=== PATIENT | male | born 1960 ===

== ENCOUNTER 2019-04-26 06:31 | Day surgery (SDC) | payer MEDICARE, MEDICAID ==
--- NOTE | 2019-04-21 11:41 | Opthalmology H&P ---
Ophthalmology H&P H&P Chief Complaint: decreased vision in right eye HPI Vision Affects Ability to: read, focus/use eyes together Past Ocular History: retinal problems - Vitreous hemorrhage OD HPI Narrative Blurry vision Exam Visual Acuity: OD 20/125 OS 20/60 Tension: OD 14 OS 16 Eye Exam: normal OU: external exam, palpebral fissure-width, marginal reflex distance, levator function, corneas, anterior chambers, lens - NS/CC Cataracts OU, fundus exam - PDR/ME OU; findings: lens - NS/CC Cataracts OU, fundus exam - PDR/ME OU Assessment/Plan Treatment Plan: cataract extraction w/ lens implant Goals of Treatment: improvement of vision, enhance quality of life Attestation Attestation The risks and benefits of the surgery as well as alternative procedures were explained to the patient in detail. Filippo Bernal MD Apr 21, 2019 11:41
--- NOTE | 2019-04-21 11:45 | Pre-Procedure Note/Attestation ---
Pre-Procedure Note/Attestation Complete Prior to Procedure Planned Procedure: right Procedure Narrative: Cataract extraction with intraocular lens implant right eye Indications for Procedure Pre-Operative Diagnosis: Nuclear sclerotic/Cortical cataract right eye Attestation I attest that I discussed the nature of the procedure; its benefits; risks and complications; and alternatives (and the risks and benefits of such alternatives ), prior to the procedure, with the patient (or the patient's legal inbound call center representative). I attest that, if there was a reasonable possibility of needing a blood transfusion, the patient (or the patient's legal inbound call center representative) was given the [facility] standardized written summary, pursuant to the Virgilio Elizabeth Blood Safety Act ([place] Health and Safety Code # 1645, as amended). I attest that I re-evaluated the patient just prior to the surgery and that there has been no change in the patient's H&P, except as documented below: Filippo Bernal MD Apr 21, 2019 11:45
[~2019-04-26] VITALS: Ht 167.6 cm; Wt 65.8 kg
[2019-04-26] VITALS (9 sets, daily range): BP systolic 157–171; BP diastolic 67–79
[~2019-04-26 06:31] MED LIST: ATORVASTATIN CA20 MG ORAL; ATORVASTATIN CA40 MG ORAL; CARVEDILOL3.125 MG ORAL; CARVEDILOL6.25 MG ORAL; DILTIAZEM ER240 M2 ORAL; FERROUS SULFAT325 MG ORAL; FOLIC ACID1 MG ORAL; FUROSEMIDE20 M1 ORAL; FUROSEMIDE40 MG ORAL; HYDRALAZINE HCL50 MG ORAL; IMDUR60 MG ORAL; LABETALOL HCL200 MG ORAL; NIFEDIPINE ER60 M3 ORAL; RENA-VITE RX T1 EAC1 PO; VITAMIN D5000 UNI1 PO
[2019-04-26] MEDS ORDERED: Tetracaine 0.5% Opth 4ml Soln RIGHT EYE ONE (07:00)
[2019-04-26] MEDS ORDERED: Akten 3.5% 1ml Btl RIGHT EYE ONE (07:00)
[2019-04-26] MEDS ORDERED: Proparacaine 0.5% Opth Soln 15ml RIGHT EYE ONE (07:00)
[2019-04-26] MEDS: Diclofenac Sod 0.1% Op Soln RIGHT EYE SCH ×3 (08:39→09:04)
[2019-04-26] MEDS: Tobramycin Op Soln 0.3% 5ml RIGHT EYE SCH ×3 (08:39→09:01)
[2019-04-26] MEDS: Phenylephrine 10% Opth Soln 5ml RIGHT EYE SCH ×3 (08:41→09:05)
[2019-04-26] MEDS: Tropicamide 1% Opth 15ml Soln RIGHT EYE SCH ×3 (08:41→09:05)
[2019-04-26] MEDS: Cyclopentolate 1% Opth Sol 2ml RIGHT EYE SCH ×3 (08:43→09:05)
[2019-04-26] MEDS ORDERED: PRAVASTATIN SOD80 M1 ORAL (09:31)
[2019-04-26] MEDS ORDERED: GLIPIZIDE5 MG ORAL (09:32)
[2019-04-26] MEDS ORDERED: DOCUSATE SODIU100 MG ORAL (09:32)
[2019-04-26] MEDS ORDERED: CARVEDILOL25 MG ORAL (09:33)
[2019-04-26] MEDS ORDERED: ACYCLOVIR400 MG ORAL (09:34)
[2019-04-26] MEDS ORDERED: BACTRIM 400-801 EACH ORAL (09:35)
[2019-04-26] MEDS ORDERED: NIFEDIPINE ER90 M2 ORAL (09:36)
[2019-04-26] MEDS ORDERED: PREDNISONE10 MG ORAL (09:36)
[2019-04-26] MEDS ORDERED: CELLCEPT250 MG ORAL (09:38)
[2019-04-26] MEDS ORDERED: PROGRAF0.5 MG PO (09:39)
[2019-04-26] MEDS ORDERED: PROGRAF1 MG ORAL (09:39)
[2019-04-26] MEDS ORDERED: EPINEPHrine 1mg/1ml Amp ONE (11:21)
[2019-04-26] MEDS ORDERED: Povidone-Iodine 5% opth solution ONE (11:22)
[2019-04-26] MEDS ORDERED: BSS 500ml btl ONE (11:22)
[2019-04-26] MEDS ORDERED: Sodium Hyaluronate 14 mg/ml 0.85ml ONE (11:22)
[2019-04-26] MEDS ORDERED: BSS 15ml BTL ONE (11:22)
[2019-04-26] MEDS ORDERED: fentaNYL 100 mcg/2 mL IV ONE (11:25)
[2019-04-26] MEDS ORDERED: Midazolam 2mg/2ml Inj ONE (11:25)
[2019-04-26] MEDS ORDERED: Pilocarpine 1% Opth 15ml Soln ONE (11:30)
[2019-04-26] MEDS ORDERED: NS Irrig 1000ml ONE (11:30)
[2019-04-26] MEDS ORDERED: LR 1000ml ONE (11:30)
[2019-04-26] MEDS ORDERED: Sterile Water Irrig 1000ml IRRIG ONE (11:30)
[2019-04-26] MEDS ORDERED: Dexamethasone 4mg/ml vial ONE (11:30)
[2019-04-26] MEDS ORDERED: fentaNYL 100 mcg/2 mL IV PRN (11:30)
[2019-04-26] MEDS ORDERED: Pred Forte 1% Opth Susp 1ml ONE (11:30)
--- NOTE | 2019-04-26 11:30 | Anethesia Preoperative Eval ---
Anesthesia Pre-op PMH/ROS General Date of Evaluation: Apr 26, 2019 Time of Evaluation: 11:29 Anesthesiologist: aries ASA Score: ASA 3 Mallampati Score Class I : Soft palate, uvula, fauces, pillars visible Class II: Soft palate, uvula, fauces visible Class III: Soft palate, base of uvula visible Class IV: Only hard plate visible Mallampati Classification: Class II Surgeon: sharan Diagnosis: cataract Surgical Procedure: cataract extraction Anesthesia History: none Family History: no anesthesia problems Allergies: Coded Allergies: NO KNOWN ALLERGIES (Unverified Allergy, 05/27/13) Medications: see eMAR Patient NPO?: Yes NPO Date: Apr 26, 2019 NPO Time: 00:01 Past Medical History Cardiovascular: Reports: HTN, CAD, other - s/p cabg Pulmonary: Denies: asthma, COPD, CARLOS, other Gastrointestinal/Genitourinary: Reports: GERD, ESRD - fistual left arm, other - s/p kidney transplant Neurologic/Psychiatric: Denies: dementia, CVA, depression/anxiety, TIA, other Endocrine: Reports: DM - fsb = 127; Denies: hypothyroidism, steroids, other HEENT: Reports: cataract (L), cataract (R); Denies: glaucoma, COMANCHE (L), COMANCHE (R), other Hematology/Immune: Denies: anemia, DVT, bleeding disorder, other Musculoskeletal/Integumentary: Reports: other - right leg pain; Denies: OA, RA, DJD, DDD, edema PSxH Narrative: CABG; kidney transplant Anesthesia Pre-op Phys. Exam Physician Exam Last Vital Signs Date Time Temp Pulse Resp B/P (MAP) Pulse Ox O2 Delivery O2 Flow Rate FiO2 04/26/19 09:23 Room Air 04/26/19 08:53 97.0 65 18 165/70 95 Constitutional: NAD Neurologic: CN 2-12 intact Cardiovascular: RRR Respiratory: CTA Gastrointestinal: S/NT/ND Airway Exam Mallampati Classification 3 Mallampati Score: Class III MO: full ROM: full Dentures: no upper, no lower Anesthesia Pre-op A/P Labs Accucheck 127 Studies Pre-op Studies: EKG - SR Risk Assessment & Plan Assessment: denies cp /sob/changes in health Plan: mac Pre-Antibiotics Drug: none Karen Mccarty CRNA Apr 26, 2019 11:30
--- NOTE | 2019-04-26 12:13 | Immediate Post-Op Evaluation ---
Immediate Post-Op Evalulation Immediate Post-Op Evalulation Procedure: right eye cataract surgery Date of Evaluation: Apr 26, 2019 Time of Evaluation: 12:12 IV Fluids: 300 Blood Pressure Systolic: 145 Blood Pressure Diastolic: 70 Pulse Rate: 62 Respiratory Rate: 14 O2 Sat by Pulse Oximetry: 99 Temperature (Fahrenheit): 97.0 Nausea: No Vomiting: No Complications none Patient Status: awake, reacts, patent Hydration Status: adequate Drug: none Karen Mccarty CRNA Apr 26, 2019 12:13
--- NOTE | 2019-04-26 15:38 | 48 Hour Post Anesthesia Eval ---
Post Anesthesia Evaluation Procedure: right eye cataract surgery Date of Evaluation: Apr 26, 2019 Time of Evaluation: 15:38 Blood Pressure Systolic: 159 0: 70 Pulse Rate: 57 Respiratory Rate: 15 O2 Sat by Pulse Oximetry: 98 Airway: patent Nausea: No Vomiting: No Hydration Status: adequate Cardiopulmonary Status: stable Mental Status/LOC: patient returned to baseline Post-Anesthesia Complications: none Follow-up care needed: N/A Karen Mccarty CRNA Apr 26, 2019 15:38
--- NOTE | 2019-04-28 13:13 | Brief Operative Note ---
Immediate Post Operative Note Operative Note Chief Complaint: Blurry vision Pre-op Diagnosis: Nuclear sclerotic/Cortical cataract right eye Procedure: Cataract extraction with IOL right eye Findings: consistent w/pre-op dx studies Surgeon: Filippo Bernal MD Anesthesiologist: Karen Mccarty CRNA Anesthesia: MAC Specimen: none Complications: none Condition: stable Fluids: LR Estimated Blood Loss: none Drains: none Implant(s) used?: Yes Filippo Bernal MD Apr 28, 2019 13:13
--- NOTE | 2019-04-28 13:14 | Operative Note - PDOC ---
Operative Note Operative Note Date of Operation/Procedure: Apr 26, 2019 Chief Complaint: Blurry vision Pre-op Diagnosis: Nuclear sclerotic/Cortical cataract right eye Procedure: Cataract extraction with IOL right eye Operative Findings: consistent w/pre-op dx studies Surgeon: Filippo Bernal MD Anesthesiologist: Karen Mccarty CRNA Anesthesia: MAC Specimen: none Complications: none Condition: stable Fluids: LR Estimated Blood Loss: none Drains: none Implant(s) used?: Yes - IOL Description of Procedure This patient has been complaining visually significant cataract in the right eye with the best corrected visual acuity of 20/80 under moderate glare conditions worse. The patient complains of difficulties with glare in performing activities of daily living and wants to manage personal affairs with comfort and accuracy and see well enough to move with safety at home and outdoors. The risks, benefits and alternatives of the procedure were discussed with the patient in the office prior to scheduling surgery. All questions from the patient were answered after the surgical procedure was explained in detail. The risks of the procedure as explained to the patient include, but are not limited to, pain, infection, bleeding, loss of vision, retinal detachment, need for further surgery, loss of lens nucleus, double vision, etc. Alternative procedures were discussed which include, to do nothing or seek a second opinion. Informed consent for this procedure was obtained from the patient. The patient was referred to a primary care physician for a cardiopulmonary clearance prior to surgery, after proper evaluation was done patient was properly scheduled for outpatient surgery. The patient was brought to the operating room where the anesthesiologist established I.V. lines and cardiac monitoring leads. Mild intravenous sedation was administered. The patient was then prepared with a 5% solution of povidone -iodine to the conjunctival fornix and lashes, and a 5% solution of povidone- iodine to the lids and periorbital skin. The patient was then draped in the usual sterile fashion. A lid speculum was then placed in the operative eye. A keratome blade was then used to create a biplanar incision into the anterior chamber. Viscoelastics was then instilled into the anterior chamber. A 3-mm single pass clear corneal incision was made just anterior to the vascular arcade of the temporal limbus using a keratome. Anterior capsulorrhexis was created. The nucleus was hydrodissected and hydrodelineated, and was freely movable in the capsular bag. The nucleus was then phacoemulsified. Following the deep groove formation, the lens was split bimanually and epicortex removed under vacuum burst-mode phacoemulsification. Peripheral cortex was removed with the irrigation and aspiration handpiece. The capsular bag was expanded with viscoelastic. The intraocular lens was then inspected for right power and size and thought to be satisfactory. The implant was inspected under the microscope and found to be free of defects. The implant was inserted into the cartridge system under viscoelastic and placed in the capsular bag. The trailing haptic was positioned with the cartridge system. Viscoelastics was removed from the anterior chamber using the irrigation and aspiration unit. The corneal wound was then tested for leaks and none were found. The lid speculum were then removed. Sponge and needle counts were correct. An eye patch and shield were placed over the operative eye. The patient was taken to the recovery room in stable condition. There were no complications. The patient tolerated the procedure well. The patient was then transferred to the ambulatory surgery unit in stable and satisfactory condition , was given detailed written instructions and asked to follow up in the office the next day. Filippo Bernal MD Apr 28, 2019 13:14
== END 2019-04-26 13:15 | disposition home or self-care (01) ==
LOC: SUR 06:31
DX: H25.11 Age-related nuclear cataract, right eye (principal); H25.011 Cortical age-related cataract, right eye; I12.0 Hypertensive chronic kidney disease with stage 5 chronic kidney disease or end stage renal disease; E11.22 Type 2 diabetes mellitus with diabetic chronic kidney disease; N18.6 End stage renal disease; Z94.0 Kidney transplant status; Z95.1 Presence of aortocoronary bypass graft
CPT/HCPCS: 66984; 82962; J0171; J0360; J1100; J2250; J3010; J3370; V2632; 94003; 94150